=== PATIENT | male | born 1980 ===

== ENCOUNTER 2017-08-16 20:20 | Observation (INO) | payer OTHER ==
--- NOTE | 2017-08-16 20:27 | EDM.PDOC ---
ED HPI GENERAL MEDICAL PROBLEM - General Chief Complaint: Abdominal Pain Time Seen by Provider: 08/16/17 20:27 Source of Information: Reports: Patient - History of Present Illness INITIAL COMMENTS - FREE TEXT/NARRATIVE: HISTORY AND PHYSICAL: History of present illness: [Patient presents with 6 out of 10 diffuse abdominal pain nonradiating with nausea and several episodes of vomiting this morning hasn't eaten anything since Unable to keep down water No fever chills sweats ] Review of systems: As per history of present illness and below otherwise all systems reviewed and negative. Past medical history: As per history of present illness and as reviewed below otherwise noncontributory. Surgical history: As per history of present illness and as reviewed below otherwise noncontributory. Social history: No reported history of drug or alcohol abuse. Family history: As per history of present illness and as reviewed below otherwise noncontributory. Physical exam: HEENT: Atraumatic, normocephalic, pupils reactive, negative for conjunctival pallor or scleral icterus, mucous membranes moist, throat clear, neck supple, nontender, trachea midline. Lungs: Clear to auscultation, breath sounds equal bilaterally, chest nontender. Heart: S1S2, regular, negative for clicks, rubs, or JVD. Abdomen: Soft, nondistended, diffuse tenderness with focus in right lower quadrant. Negative for masses or hepatosplenomegaly. Negative for costovertebral tenderness. Pelvis: Stable nontender. Genitourinary: Deferred. Rectal: Deferred. Extremities: Atraumatic, negative for cords or calf pain. Neurovascular unremarkable. Neuro: Awake, alert, oriented. Cranial nerves II through XII unremarkable. Cerebellum unremarkable. Motor and sensory unremarkable throughout. Exam nonfocal. Diagnostics: [CBC CMP UA amylase lipase CT abdomen and pelvis with contrast ] Therapeutics: [Liter normal saline bolus Red Reglan 10 mg IV Nothing by mouth Discussed with Dr. Albrecht Admit to Jorge she will consult in the morning ] Impression: Small bowel obstruction [Abdominal pain] Definitive disposition and diagnosis as appropriate pending reevaluation and review of above. abdomen Pain Score (Numeric/FACES): 7 - Related Data Allergies Allergy/AdvReac Type Severity Reaction Status Date / Time No Known Allergies Allergy Verified 08/16/17 20:38 Home Meds: Home Meds . [No Known Home Meds] 08/16/17 [History] ED ROS GENERAL - Review of Systems Review Of Systems: ROS reveals no pertinent complaints other than HPI. ED EXAM, GENERAL - Physical Exam Exam: See Below Course - Vital Signs Last Recorded V/S: Last Vital Signs Temp 98.3 F 08/16/17 20:20 Pulse 68 08/16/17 20:20 Resp 24 H 08/16/17 20:20 BP 147/83 H 08/16/17 20:20 Pulse Ox 98 08/16/17 20:20 - Orders/Labs/Meds Orders: Active Orders 24 hr Category Date Time Status Abdomen Pelvis w Cont [CT] Stat Exams 08/16/17 20:45 Taken Sodium Chloride 0.9% [Normal Saline] 1,000 ml Med 08/16/17 22:01 Active IV STAT Medication Orders Sodium Chloride (Normal Saline) 1,000 mls @ 999 mls/hr IV STAT ONE Stop: 08/16/17 23:01 Last Admin: 08/16/17 22:04 Dose: 999 mls/hr Labs: Laboratory Tests 08/16/17 08/16/17 08/16/17 Range/Units 20:45 20:45 22:00 WBC 12.41 H (4.0-11.0) K/uL RBC 5.33 (4.50-5.90) M/uL Hgb 16.1 (13.0-17.0) g/dL Hct 47.5 (38.0-50.0) % MCV 89.1 (80.0-98.0) fL MCH 30.2 (27.0-32.0) pg MCHC 33.9 (31.0-37.0) g/dL RDW Std Deviation 43.3 (28.0-62.0) fl RDW Coeff of [place]essenia 13 (11.0-15.0) % Plt Count 201 (150-400) K/uL MPV 11.30 (7.40-12.00) fL Neut % (Auto) 77.3 (48.0-80.0) % Lymph % (Auto) 15.1 L (16.0-40.0) % [place] % (Auto) 6.3 (0.0-15.0) % Eos % (Auto) 1.2 (0.0-7.0) % Baso % (Auto) 0.1 (0.0-1.5) % Neut # (Auto) 9.6 H (1.4-5.7) K/uL Lymph # (Auto) 1.9 (0.6-2.4) K/uL [place] # (Auto) 0.8 (0.0-0.8) K/uL Eos # (Auto) 0.2 (0.0-0.7) K/uL Baso # (Auto) 0.0 (0.0-0.1) K/uL Nucleated RBC % 0.0 /100WBC Nucleated RBCs # 0 K/uL Sodium 140 (136-146) mmol/L Potassium 4.4 (3.5-5.1) mmol/L Chloride 104 (98-110) mmol/L Carbon Dioxide 25 (21-31) mmol/L BUN 12 (6.0-23.0) mg/dL Creatinine 1.1 (0.6-1.5) mg/dL Est Cr Clr Drug Dosing 88.95 mL/min Estimated GFR (MDRD) > 60.0 ml/min Glucose 120 H (60-110) mg/dL Calcium 10.2 (8.8-10.8) mg/dL Total Bilirubin 0.9 (0.1-1.5) mg/dL AST 21 (5-40) IU/L ALT 24 (8-54) IU/L Alkaline Phosphatase 86 (40-150) Troponin I < 0.10 (0.0-0.29) NG/ML Total Protein 7.7 (6.0-8.0) g/dL Albumin 4.6 (3.5-5.0) g/dL Globulin 3.1 (2.0-3.5) g/dL Albumin/Globulin Ratio 1.5 (1.3-2.8) Amylase 39 (10-90) U/L Lipase 20 (7-80) U/L Urine Color YELLOW Urine Appearance CLEAR Urine pH 8.5 H (5.0-8.0) Ur Specific [place] 1.010 (1.001-1.035) Urine Protein NEGATIVE (NEGATIVE) mg/dL Urine Glucose (UA) NEGATIVE (NEGATIVE) mg/dL Urine Ketones TRACE H (NEGATIVE) mg/dL Urine Occult Blood NEGATIVE (NEGATIVE) Urine Nitrite NEGATIVE (NEGATIVE) Urine Bilirubin NEGATIVE (NEGATIVE) Urine Urobilinogen 1.0 (<2.0) EU/dL Ur Leukocyte Esterase NEGATIVE (NEGATIVE) Urine RBC 0-2 (0-2/HPF) Urine WBC 1-3 (0-5/HPF) Ur Epithelial Cells RARE (NONE-FEW) Urine Bacteria RARE (NEGATIVE) Meds: Medications Generic Name Dose Route Start Last Admin Trade Name Floyd PRN Reason Stop Dose Admin Sodium Chloride 1,000 mls @ 999 mls/hr 08/16/17 22:01 08/16/17 22:04 Normal Saline IV 08/16/17 23:01 999 mls/hr STAT ONE Administration Discontinued Medications Generic Name Dose Route Start Last Admin Trade Name Floyd PRN Reason Stop Dose Admin Sodium Chloride 1,000 mls @ 999 mls/hr 08/16/17 20:43 08/16/17 20:52 Normal Saline IV 08/16/17 21:43 999 mls/hr STAT ONE Administration Ketorolac Tromethamine 30 mg 08/16/17 20:43 08/16/17 20:55 Toradol IVPUSH 08/16/17 20:44 30 mg ONETIME ONE Administration Ondansetron HCl 8 mg 08/16/17 20:43 08/16/17 20:53 Zofran IVPUSH 08/16/17 20:44 8 mg ONETIME ONE Administration Departure - Departure Time of Disposition: 22:28 Disposition: Home, Self-Care 01 Condition: Good Clinical Impression: Small bowel obstruction - Discharge Information Forms: ED Department Discharge - My Orders Last 24 Hours: My Active Orders 08/16/17 20:45 Abdomen Pelvis w Cont [CT] Stat 08/16/17 22:01 Sodium Chloride 0.9% [Normal Saline] 1,000 ml IV STAT - Assessment/Plan Last 24 Hours: My Active Orders 08/16/17 20:45 Abdomen Pelvis w Cont [CT] Stat 08/16/17 22:01 Sodium Chloride 0.9% [Normal Saline] 1,000 ml IV STAT
[2017-08-16] MEDS ORDERED: Sodium Chloride 0.9% 1,000 ML IV ONE ×2 (20:43→22:01)
[2017-08-16] MEDS ORDERED: Ketorolac 30 MG/ML SDV IVPUSH ONE (20:43)
[2017-08-16] MEDS ORDERED: Ondansetron 4 MG/2 ML SDV IVPUSH ONE (20:43)
[2017-08-16 21:37] LABS: CHLORIDE,CL 104 mmol/L (98-110); SODIUM,NA 140 mmol/L (136-146)
[2017-08-16] MEDS ORDERED: Metoclopramide 10 MG/2 ML SDV IV ONE (22:30)
[2017-08-16] MEDS: Sodium Chloride 0.9% 1,000 ML IV SCH (22:59)
[2017-08-16] MEDS ORDERED: Morphine 2 MG/ML Syringe IVPUSH PRN (23:41)
[2017-08-16] MEDS ORDERED: Ondansetron 4 MG/2 ML SDV IVPUSH PRN (23:41)
[2017-08-16] MEDS ORDERED: Sodium Chloride 0.9% 1,000 ML IV SCH (23:45)
[2017-08-17 06:31] LABS: CHLORIDE,CL 110 mmol/L (98-110); SODIUM,NA 141 mmol/L (136-146)
--- NOTE | 2017-08-17 07:40 | PCM.HP ---
H&P History of Present Illness - General Date of Service: 08/17/17 Admit Problem/Dx: Admission Diagnosis/Problem Admission Diagnosis/Problem Small bowel obstruction Source of Information: Patient History Limitations: Reports: No Limitations - History of Present Illness Initial Comments - Free Text/Narative: This 37 year old male, otherwise healthy, presented to the ED last evening with complaints of diffuse abdominal pain along with N/V. He reports he ate [employer] Thursday evening and woke up early Thursday morning with abdominal cramping, along the top of his abdomen. He reports vomiting due to the pain. He reports passing flatus still, but last BM was early Thursday morning, which was diarrhea in nature. He denies black or bloody stools or hematemesis. He denies any recent travel or antibiotic use. He denies sick contacts with similar symptoms. He Denies any abdominal surgeries and reports his grandfather had colon cancer, he believes. he denies chest pain, SOB, fevers or chills. No URI symptoms and no urinary symptoms. He is feeling better this morning, still has some tenderness to mid upper abdomen but no further N/V and he is still passing gas. In the ED, slightly leukocytosis noted, 12,410. BMP WNL UA negative. CT revealed "small bowel obstruction secondary to a short segment of circumferential small bowel wall thickening within a mid to distal jejunal loop in the right abdomen. The thickening may be secondary to stricture from prior inflammation, active inflammatory bowel disease, or less likely neoplasm. Surgical consultation is recommended." Dr Mcallister contacted from ED and will see patient this morning. He was admitted observation for abdominal pain and SBO. abdomen Pain Score (Numeric/FACES): 2 - Related Data Allergies/Adverse Reactions: Allergies Allergy/AdvReac Type Severity Reaction Status Date / Time No Known Allergies Allergy Verified 08/16/17 20:38 Home Medications: Home Meds . [No Known Home Meds] 08/16/17 [History] Past Medical History - Past Health History Medical/Surgical History: Denies Medical/Surgical History HEENT History: Reports: Impaired Vision Other HEENT History: weras glasses Cardiovascular History: Reports: None. Denies: Blood Clots/VTE/DVT, High Cholesterol, Hypertension, DC Respiratory History: Reports: None. Denies: Asthma, COPD Gastrointestinal History: Reports: None. Denies: Bowel Obstruction, GI Bleed, Inflammatory Bowel Disease, Irritable Bowel Syndrome Genitourinary History: Reports: None. Denies: Chronic Renal Insuffiency Neurological History: Reports: None. Denies: Migraines Endocrine/Metabolic History: Reports: Obesity/BMI 30+. 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 Denies: Fever, Chills, Malaise, Weakness, Fatigue HEENT: Reports: No Symptoms. Denies: Headaches, Sinus Congestion, Sore Throat Pulmonary: Reports: No Symptoms. Denies: Shortness of Breath, Wheezing, Cough, Sputum Cardiovascular: Reports: No Symptoms. Denies: Chest Pain, Palpitations, Edema, Lightheadedness Gastrointestinal: Reports: Abdominal Pain, Diarrhea, Flatus, Nausea (not since ED.), Vomiting. Denies: Black Stool, Bloody Stool, Decreased Appetite, Distension Genitourinary: Reports: No Symptoms. Denies: Dysuria, Frequency, Burning, Pain Musculoskeletal: Reports: No Symptoms Skin: Reports: No Symptoms Psychiatric: Reports: No Symptoms Neurological: Reports: No Symptoms Hematologic/Lymphatic: Reports: No Symptoms Immunologic: Reports: No Symptoms Exam - Exam Exam: See Below - Vital Signs Vital Signs: Last Vital Signs Temp 98.8 F 08/17/17 04:00 Pulse 61 08/17/17 04:00 Resp 16 08/17/17 04:00 BP 120/55 L 08/17/17 04:00 Pulse Ox 98 08/17/17 04:00 Weight: 118.705 kg - Exam General: Alert, Oriented, Cooperative HEENT: Conjunctiva Clear, Nares Patent, Pupils Equal, Pupils Reactive Neck: Supple, Trachea Midline, 2 Lungs: Clear to Auscultation, Normal Respiratory Effort Cardiovascular: Regular Rate, Regular Rhythm GI/Abdominal Exam: Normal Bowel Sounds, Soft, No Organomegaly, No Distention, No Abnormal Bruit, No Mass, Pelvis Stable, Tender (scant tenderness to mid- abdomen. ) Extremities: Normal Inspection, Normal Range of Motion, Non-Tender, No Pedal Edema, Normal Capillary Refill Neuro Extensive - Mental Status: Alert, Oriented x3, Normal Mood/Affect, Normal Cognition Psychiatric: Alert, Normal Affect, Normal Mood - Patient Data Lab Results Last 24 hrs: Laboratory Results - last 24 hr 08/17/17 08/17/17 Range/Units 05:28 05:28 WBC 11.67 H (4.0-11.0) K/uL RBC 4.77 (4.50-5.90) M/uL Hgb 14.2 (13.0-17.0) g/dL Hct 43.0 (38.0-50.0) % MCV 90.1 (80.0-98.0) fL MCH 29.8 (27.0-32.0) pg MCHC 33.0 (31.0-37.0) g/dL RDW Std Deviation 44.4 (28.0-62.0) fl RDW Coeff of [place]ess[place] 13 (11.0-15.0) % Plt Count 189 (150-400) K/uL MPV 12.00 (7.40-12.00) fL Neut % (Auto) 69.2 (48.0-80.0) % Lymph % (Auto) 21.3 (16.0-40.0) % [place] % (Auto) 7.3 (0.0-15.0) % Eos % (Auto) 2.0 (0.0-7.0) % Baso % (Auto) 0.2 (0.0-1.5) % Neut # (Auto) 8.1 H (1.4-5.7) K/uL Lymph # (Auto) 2.5 H (0.6-2.4) K/uL [place] # (Auto) 0.9 H (0.0-0.8) K/uL Eos # (Auto) 0.2 (0.0-0.7) K/uL Baso # (Auto) 0.0 (0.0-0.1) K/uL Nucleated RBC % 0.0 /100WBC Nucleated RBCs # 0 K/uL Sodium 141 (136-146) mmol/L Potassium 3.8 (3.5-5.1) mmol/L Chloride 110 (98-110) mmol/L Carbon Dioxide 23 (21-31) mmol/L BUN 10 (6.0-23.0) mg/dL Creatinine 0.9 (0.6-1.5) mg/dL Est Cr Clr Drug Dosing 108.72 mL/min Estimated GFR (MDRD) > 60.0 ml/min Glucose 101 (60-110) mg/dL Calcium 8.7 L (8.8-10.8) mg/dL Total Bilirubin 0.9 (0.1-1.5) mg/dL AST 17 (5-40) IU/L ALT 18 (8-54) IU/L Alkaline Phosphatase 69 (40-150) Total Protein 6.1 (6.0-8.0) g/dL Albumin 3.8 (3.5-5.0) g/dL Globulin 2.3 (2.0-3.5) g/dL Albumin/Globulin Ratio 1.7 (1.3-2.8) Result Diagrams: 08/17/17 05:28 08/17/17 05:28 *Q Meaningful Use (ADM) - VTE *Q VTE Criteria *Q: - Stroke *Q Stroke Criteria *Q: - AMI *Q AMI Criteria *Q: - Problem List (1) Small bowel obstruction SNOMED Code(s): 471969936 ICD Code: K56.609 - UNSP INTESTNL OBST, UNSP TO PARTIAL VERSUS COMPLETE OBST Status: Acute Current Visit: Yes (2) Abdominal pain SNOMED Code(s): 67712211 ICD Code: R10.9 - UNSPECIFIED ABDOMINAL PAIN Status: Acute Current Visit : Yes Qualifiers: Abdominal location: upper abdomen, unspecified Qualified Code(s): R10.10 - Upper abdominal pain, unspecified Problem List Initiated/Reviewed/Updated: Yes Orders Last 24hrs: Active Orders 24 hr Category Date Time Status Communication Order [RC] DAILY Care 08/16/17 23:44 Active Nothing per Oral Now Diet [DIET] Diet 08/17/17 Breakfast Active Morphine Med 08/16/17 23:41 Active 2 mg IVPUSH Q3H PRN Ondansetron [Zofran] Med 08/16/17 23:41 Active 4 mg IVPUSH Q3H PRN Sodium Chloride 0.9% [Normal Saline] 1,000 ml Med 08/16/17 23:45 Active IV ASDIRECTED Medication Orders Sodium Chloride (Normal Saline) 1,000 mls @ 125 mls/hr IV STAT [facility] Last Infusion: 08/17/17 05:47 Dose: 125 mls/hr Admin: 08/16/17 22:59 Dose: 125 mls/hr Sodium Chloride (Normal Saline) 1,000 mls @ 125 mls/hr IV ASDIRECTED RAVI Last Admin: 08/17/17 05:50 Dose: 125 mls/hr Morphine Sulfate (Morphine) 2 mg IVPUSH Q3H PRN PRN Reason: Pain Last Admin: 08/17/17 04:39 Dose: 2 mg Ondansetron HCl (Zofran) 4 mg IVPUSH Q3H PRN PRN Reason: Nausea/Vomiting Assessment/Plan Comment:: This 37 year old male admitted with SBO and abdominal pain 1. SBO: Feeling much better this morning. Visited with patient and Dr Mcallister consulted as well. Likely infectious etiology Patient called nursing station and reported having BM. Dr. Mcallister recommended advancing to CL diet this morning and then soft for lunch and if doing well he can be discharged home today with follow up with her for SBO follow through. Will monitor today VTE prophylaxis: SCDs for now. Dispo: possibly later today, will monitor. Discharge Plan: Patient doing well today, CL diet started after BM this morning, and he has tolerated this well. This afternoon he was given soft diet which he tolerated well. he has had another stool this afternoon. No further abdominal pain. he will be given work release to return to work on Thursday and encouraged to keep diet bland and low fiber for next week. He is to follow up with Dr Mcallister for possible Small bowel follow through study. He is to return to ED or clinic if concerns should arise.
--- NOTE | 2017-08-17 09:21 | PCM.CONS ---
H&P History of Present Illness - General Date of Service: 08/17/17 Admit Problem/Dx: Admission Diagnosis/Problem Admission Diagnosis/Problem Small bowel obstruction Source of Information: Patient History Limitations: Reports: No Limitations - History of Present Illness Initial Comments - Free Text/Narative: Patient is an otherwise healthy 37 year old who presented with nausea, vomiting , and abdominal pain for 24 hours. He last ate Thursday. That evening he started feeling nauseated. He woke up in the middle of the night with crampy upper abdominal pain and started vomiting. He tried drinking some fluid and eating some food but vomited. He tried pepto bismol but vomited that up as well. He had a BM Thursday morning. He said that his bm appeared normal. He denies melena, hematochezia, or hematemesis. He has never had any change in his bowel or eating habits. He has a grandfather who had colon cancer in his 50s or 60s. He denies any autoimmune diseases in the family. He is still passing gas. He was brought to the ED. His WBC was mildly elevated. A CT of the abdomen showed some thickening of the distal jejunum with dilated proximal bowel and decompressed distal small bowel. There was some fecalization proximal to the stenosed area. He was admitted to the medicine service and kept NPO. He feels much better this morning. abdomen Pain Score (Numeric/FACES): 2 - Related Data Allergies/Adverse Reactions: Allergies Allergy/AdvReac Type Severity Reaction Status Date / Time No Known Allergies Allergy Verified 08/16/17 20:38 Home Medications: Home Meds . [No Known Home Meds] 08/16/17 [History] Past Medical History - Past Health History Medical/Surgical History: Denies Medical/Surgical History HEENT History: Reports: Impaired Vision Other HEENT History: weras glasses Social & Family History - Family History Family Medical History: Noncontributory - Tobacco Use Smoking Status *Q: Never Smoker Second Hand Smoke Exposure: No - Caffeine Use Caffeine Use: Reports: Coffee, Soda, Tea - Alcohol Use Date of Last Drink: 08/12/17 Time of Last Drink: 20:00 - Recreational Drug Use Recreational Drug Use: No H&P Review of Systems - Review of Systems: Review Of Systems: ROS reveals no pertinent complaints other than HPI. Exam - Exam Exam: See Below - Vital Signs Vital Signs: Last Vital Signs Temp 37.3 C 08/17/17 08:00 Pulse 67 08/17/17 08:00 Resp 20 08/17/17 08:00 BP 106/55 L 08/17/17 08:00 Pulse Ox 93 L 08/17/17 08:00 Weight: 118.705 kg - Exam General: Alert, Oriented, Cooperative HEENT: Conjunctiva Clear, EOMI, Hearing Intact, Mucosa Moist & [place], Posterior Pharynx Clear, Pupils Equal, Pupils Reactive Neck: Supple Lungs: Clear to Auscultation, Normal Respiratory Effort Cardiovascular: Regular Rate, Regular Rhythm GI/Abdominal Exam: Soft, Non-Tender, No Distention, No Mass (Male) Exam: No Hernia Extremities: Normal Inspection, Normal Range of Motion - Patient Data Lab Results Last 24 hrs: Laboratory Results - last 24 hr 08/17/17 08/17/17 Range/Units 05:28 05:28 WBC 11.67 H (4.0-11.0) K/uL RBC 4.77 (4.50-5.90) M/uL Hgb 14.2 (13.0-17.0) g/dL Hct 43.0 (38.0-50.0) % MCV 90.1 (80.0-98.0) fL MCH 29.8 (27.0-32.0) pg MCHC 33.0 (31.0-37.0) g/dL RDW Std Deviation 44.4 (28.0-62.0) fl RDW Coeff of [place] 13 (11.0-15.0) % Plt Count 189 (150-400) K/uL MPV 12.00 (7.40-12.00) fL Neut % (Auto) 69.2 (48.0-80.0) % Lymph % (Auto) 21.3 (16.0-40.0) % [place] % (Auto) 7.3 (0.0-15.0) % Eos % (Auto) 2.0 (0.0-7.0) % Baso % (Auto) 0.2 (0.0-1.5) % Neut # (Auto) 8.1 H (1.4-5.7) K/uL Lymph # (Auto) 2.5 H (0.6-2.4) K/uL [place] # (Auto) 0.9 H (0.0-0.8) K/uL Eos # (Auto) 0.2 (0.0-0.7) K/uL Baso # (Auto) 0.0 (0.0-0.1) K/uL Nucleated RBC % 0.0 /100WBC Nucleated RBCs # 0 K/uL Sodium 141 (136-146) mmol/L Potassium 3.8 (3.5-5.1) mmol/L Chloride 110 (98-110) mmol/L Carbon Dioxide 23 (21-31) mmol/L BUN 10 (6.0-23.0) mg/dL Creatinine 0.9 (0.6-1.5) mg/dL Est Cr Clr Drug Dosing 108.72 mL/min Estimated GFR (MDRD) > 60.0 ml/min Glucose 101 (60-110) mg/dL Calcium 8.7 L (8.8-10.8) mg/dL Total Bilirubin 0.9 (0.1-1.5) mg/dL AST 17 (5-40) IU/L ALT 18 (8-54) IU/L Alkaline Phosphatase 69 (40-150) Total Protein 6.1 (6.0-8.0) g/dL Albumin 3.8 (3.5-5.0) g/dL Globulin 2.3 (2.0-3.5) g/dL Albumin/Globulin Ratio 1.7 (1.3-2.8) Result Diagrams: 08/17/17 05:28 08/17/17 05:28 Consult PN Assessment/Plan Procedures: Procedures ASSAY THYROID STIM HORMONE (04/11/15) COMPLETE CBC W/AUTO DIFF WBC (04/11/15) RBC SED RATE AUTOMATED (04/11/15) ROUTINE VENIPUNCTURE (04/11/15) (1) Small bowel obstruction SNOMED Code(s): 336119599 Code(s): K56.609 - UNSP INTESTNL OBST, UNSP TO PARTIAL VERSUS COMPLETE OBST Current Visit: Yes Problem List Initiated/Reviewed/Updated: Yes My Orders Last 24 Hours: My Active Orders 08/16/17 23:44 Communication Order [RC] DAILY Plan: The etiology of this area of thickening is unknown at this time. He appears to have a partial small bowel obstruction. The most common cause of an incidental area of small bowel thickening is infectious. He could have Crohn's disease but this would be a very strange presentation as it usually presents as terminal ileitis not a single focal area of stricture. I would expect him to have more symptoms before this as well. The chance of this being something malignant is very low. I would keep him NPO and continue IVF. His WBC appears to be improving. Can consider starting IV antibiotics. I will leave that up to the medicine team. Once he has a BM, can advance diet to clears and see if this is tolerated. My plan is to see him as an outpatient with a small bowel follow through.
[2017-08-17] MEDS: Sodium Chloride 0.9% 1,000 ML IV SCH (14:18)
--- NOTE | 2017-08-17 16:28 | CT ---
EXAM DATE: 08/16/17 PATIENT'S AGE: 37 Patient: SNEHA HAUSER Facility: [place], [place] Site . Site : [id number] Study: CT Abdomen/Pelvis WITH [id number] 10:00:36 PM Ordering Physician: John Mann Final Report: INDICATION: General abdominal pain with nausea and vomiting TECHNIQUE: CT abdomen and pelvis acquired with 100 cc Isovue 370 IV contrast. COMPARISON: None FINDINGS: Lower chest: Unremarkable. Liver: Unremarkable. Spleen: Unremarkable. Pancreas: Unremarkable. Gallbladder and bile ducts: Unremarkable. Adrenal glands: Unremarkable. Kidneys: Unremarkable. GI tract: There are multiple loops of dilated mid to distal jejunum, reaching a maximum diameter of the 3.4 cm. The transition zone appears to be within the right abdomen and is due to a short segment of small bowel wall thickening, best seen on image numbers 65- 70 series 201 and image numbers 43-50 series 204. There is small bowel feces sign within loops directly proximal to the area of thickening. There is a small amount of free fluid but no free air or pneumoperitoneum. The more distal small bowel and colon are decompressed. Appendix is normal. Vascular structures: Unremarkable. Lymph nodes: Unremarkable. Miscellaneous: Unremarkable. No free air or significant free fluid. Pelvic Organs: Unremarkable. Bones: Unremarkable for age. IMPRESSION: Small bowel obstruction secondary to a short segment of circumferential small bowel wall thickening within a mid to distal jejunal loop in the right abdomen. The thickening may be secondary to stricture from prior inflammation, active inflammatory bowel disease, or less likely neoplasm. Surgical consultation is recommended. Please note that all CT scans at this facility use dose modulation, iterative reconstruction, and/or weight-based dosing when appropriate to reduce radiation dose to as low as reasonably achievable. Dictated by Fannie Tracy MD @ Aug 16 2017 10:18PM (Electronic Signature) Report Signed by Proxy. JASMINA
[2017-08-17] MEDS ORDERED: Iopamidol 755 Mg/ML 100 ML Bottle IVPUSH STA (21:16)
== END 2017-08-17 16:00 | disposition home or self-care (01) ==
LOC: MW.ED 20:20 → MW.MS 22:30
PROVIDERS: ADMIT Internal Medicine; ATTEND Internal Medicine
DX: K56.609 Unspecified intestinal obstruction, unspecified as to partial versus complete obstruction (principal); R11.2 Nausea with vomiting, unspecified; E66.9 Obesity, unspecified; Z68.39 Body mass index [BMI] 39.0-39.9, adult
CPT/HCPCS: 36415; 74177; 80053; 81001; 82150; 83690; 84484; 85025; 96361; 96374; 96375; 99285; J1885; J2270; J2405; J2765; J7040; Q9967; 99282; G0378